=== PATIENT | male | born 1985 | race Caucasian/White ===

== ENCOUNTER 2023-09-13 08:48 | Outpatient (CLI) | payer BC, SELFPAY | END 2023-09-13 08:49 | disposition home or self-care (01) | PROVIDERS: PCP Emergency Medicine; Visit Provider Emergency Medicine | DX: Z00.00 Encounter for general adult medical examination without abnormal findings (principal); Z13.6 Encounter for screening for cardiovascular disorders; Z13.1 Encounter for screening for diabetes mellitus | CPT/HCPCS: 80061; 82947 ==

== ENCOUNTER 2025-03-17 08:10 | Outpatient (CLI) | payer OTHER, SELFPAY | END 2025-03-17 08:11 | disposition home or self-care (01) | LOC: NFLDREF 03-23 17:29 | PROVIDERS: PCP Emergency Medicine; Referring Provider Emergency Medicine; Visit Provider Emergency Medicine | DX: Z01.818 Encounter for other preprocedural examination (principal); J34.89 Other specified disorders of nose and nasal sinuses | CPT/HCPCS: 80048 ==

== ENCOUNTER 2025-03-20 09:30 | Day surgery (SDC) | payer OTHER, SELFPAY ==
[2025-03-20] VITALS (12 sets, daily range): BP systolic 112–125; BP diastolic 66–91; PULSE 72–84; RESP 15–22; TEMP 36.1–36.7; O2SAT 96–100; BMI 27.8
[2025-03-20] MEDS: LACTATED RINGERS 1000 ML 1,000 ML 100 ML IV (10:00)
[2025-03-20] MEDS: SODIUM CHLORIDE 0.9 % (FLUSH) 10 ML SYRINGE IVF (10:00)
[2025-03-20] MEDS: OXYMETAZOLINE 0.05% NASAL SPRAY 2 SPRAY NOSTRIL-B (10:40)
--- NOTE | 2025-03-20 11:27 | P.ANES_ITS ---
Anesthesia Charges Start Date/Time Anesthesia Start Date: 03/20/25 Anesthesia Start Time: 11:10 Stop Date/Time Anesthesia Stop Date: 03/20/25 Anesthesia Stop Time: 12:09 Coding CPT Codes CPT Codes: ANESTH NOSE/SINUS SURGERY - 69514 ([id number]) P2 - PATIENT W/MILD SYST DISEASE, QK - SUPPORT TECHNICIAN 2-4 CNCRNT ANES PROC, QX - MARKETING ENGINEER SVC W/ MD MED DIRECTION
--- NOTE | 2025-03-20 11:27 | W.ANESCHARGE ---
Anesthesia Charges Start Date/Time Anesthesia Start Date: 03/20/25 Anesthesia Start Time: 11:10 Stop Date/Time Anesthesia Stop Date: 03/20/25 Anesthesia Stop Time: 12:09 Coding CPT Codes CPT Codes: ANESTH NOSE/SINUS SURGERY - 43223 ([id number]) P2 - PATIENT W/MILD SYST DISEASE, QK - BASKETBALL COMMENTATOR 2-4 CNCRNT ANES PROC, QX - HANDICAPPER HARNESS RACING SVC W/ MD MED DIRECTION
[2025-03-20] MEDS: COCAINE HCL 4 % 4 ML SOLUTION NOSTRIL-B (11:35)
[2025-03-20] MEDS: MUPIROCIN 1 GM PACKET 1 APPLIC TOPICAL (11:38)
[2025-03-20] MEDS: AYR SALINE NASAL GEL 1 APPLIC NOSTRIL-B (11:45)
[2025-03-20] MEDS: BUPIVACAINE 0.5%/EPINEPHRINE 0.9 MG (30.9 ML) INJECTION (11:50)
--- NOTE | 2025-03-20 12:07 | P.ANES_ITS ---
Anesthesia Charges Start Date/Time Anesthesia Start Date: 03/20/25 Anesthesia Start Time: 11:10 Stop Date/Time Anesthesia Stop Date: 03/20/25 Anesthesia Stop Time: 12:09 Coding CPT Codes CPT Codes: ANESTH NOSE/SINUS SURGERY - 54407 ([id number]) P2 - PATIENT W/MILD SYST DISEASE, QK - CUSTOMER CARE ASSOCIATE 2-4 CNCRNT ANES PROC, QX - INFORMATION SYSTEMS ANALYST SVC W/ MD MED DIRECTION
--- NOTE | 2025-03-20 12:07 | W.ANESCHARGE ---
Anesthesia Charges Start Date/Time Anesthesia Start Date: 03/20/25 Anesthesia Start Time: 11:10 Stop Date/Time Anesthesia Stop Date: 03/20/25 Anesthesia Stop Time: 12:09 Coding CPT Codes CPT Codes: ANESTH NOSE/SINUS SURGERY - 18777 ([id number]) P2 - PATIENT W/MILD SYST DISEASE, QK - RECONCILIATION MANAGER 2-4 CNCRNT ANES PROC, QX - MASTER OCEAN SVC W/ MD MED DIRECTION
--- NOTE | 2025-03-20 12:10 | P.ENTPROC_ITS ---
Procedure Note Date of procedure: 03/20/25 Procedure: Preop diagnosis deviated septum nasal obstruction inferior turbinate hypertrophy Postoperative diagnosis same Procedure nasal septoplasty, submucous partial resection inferior turbinates Under general endotracheal anesthesia patient was prepped and draped usual fashion the nose decongested and injected. A right hemitransfixion incision was made. Left anterior and posterior tunnels were created. A vertical incision was made just anterior to the bony cartilaginous junction and a right posterior tunnel created. The turbinate scissors were used to cut above and below the deflected portions of septal bone and a large piece was removed trimmed and returned to intraseptal space. Anteriorly there was redundant cartilage so an inferior 2 mm strip of cartilage was removed leaving a normal amount for dorsal and tip support. Additionally there was a left premaxillary wing deformity that was removed with a chisel. Septum was now midline and the hemitransfixion closed with 2 4-0 Vicryl sutures. A stab incision was made in the anterior of the right inferior turbinate a tunnel created with a Cooper dissector. The irving bone was outfractured a conservative anterior submucous resection performed. 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 This was repeated on the left side in identical fashion. Silastic stents were secured with 3-0 nylon and Merocel packing coated in Bactroban was placed above the stents on each side. The patient procedure well was taken recovery in satisfactory condition. Blood loss was 10 mL. Surgeon: Karel Bailey MD
== END 2025-03-20 13:49 | disposition home or self-care (01) ==
LOC: OR 09:31
PROVIDERS: PCP Emergency Medicine; Visit Provider Otolaryngology
PROC: (CPT 30520; principal; 2025-03-20 10:45)
DX: J34.2 Deviated nasal septum (principal); J34.3 Hypertrophy of nasal turbinates
CPT/HCPCS: 30520; 30140; 00160; A9270; J0330; J1100; J2250; J2405; J2704; J3010; J7120